=== PATIENT | female | born 1965 | race Caucasian/White ===

== ENCOUNTER 2020-03-30 09:01 | Inpatient (IN) | payer MEDICARE, OTHER ==
[~2020-03-30] VITALS: Ht 162.6 cm; Wt 86.2 kg
[2020-03-30] MEDS ORDERED: ONDANSETRON HCL INJ 2MG/ML 2ML 2 MG/ML VIAL IV ONE (09:23)
[2020-03-30] MEDS ORDERED: SODIUM CHLORIDE 0.9% 1000ML 1,000 ML IV STA (09:23)
[2020-03-30] MEDS ORDERED: KETOROLAC TROMETHAMINE 30 MG/ML VIAL IV ONE (09:23)
[2020-03-30 09:32] LABS: BASOPHILS # (AUTO) 0.1 (0.0-0.1); BASOPHILS % 0.6 % (0.0-1.0); EOSINOPHILS % 6.6 % (0.0-6.0); HEMATOCRIT 33.2 % (34.2-44.1); HEMOGLOBIN 10.1 g/dL (12.0-16.0); LYMPHOCYTES # (AUTO) 1.9 (1.0-3.2); LYMPHOCYTES % 11.9 % (18.0-39.1); MEAN CORPUSCULAR HEMOGLOBIN 24.6 pg (28-32); MEAN CORPUSCULAR HGB CONC 30.4 g/dL (31-35); MONOCYTES % 6.5 % (4.4-11.3); NEUTROPHILS # (AUTO) 11.7 (2.1-6.9); PLATELET COUNT 336 x10e3/uL (140-360); RED CELL DISTRIBUTION WIDTH 16.5 % (11.7-14.4)
[2020-03-30 09:43] LABS: INR 0.96; PROTHROMBIN TIME 13.3 seconds (11.9-14.5)
[2020-03-30 09:44] LABS: PARTIAL THROMBOPLASTIN TIME 31.5 seconds (23.8-35.5)
[2020-03-30 09:53] LABS: ALBUMIN 2.5 g/dL (3.5-5.0); ALBUMIN/GLOBULIN RATIO 0.5 (0.8-2.0); CALCIUM 8.6 mg/dL (8.4-10.2); CREATININE, SERUM 1.96 mg/dL (0.57-1.11)
[2020-03-30 09:59] LABS: CREATINE KINASE MB 1.5 ng/mL (0-5.0)
[2020-03-30] MEDS ORDERED: SODIUM CHLORIDE 0.9% 1000ML 1,000 ML IV ONE ×4 (10:08→22:00)
[2020-03-30] MEDS ORDERED: SODIUM BICARBONATE 8.4% INJ 50 ML SYR IV ONE (10:08)
[2020-03-30] MEDS ORDERED: DEXTROSE 50% SYRINGE 50 ML IV ONE ×2 (10:08→10:23)
[2020-03-30] MEDS ORDERED: CLINDAMYCIN PHOS 900MG/ 50ML 50 ML IV SCH (10:15)
[2020-03-30] MEDS ORDERED: INSULIN REGULAR, HUMAN 100 UNIT/1 ML 3ML VIAL IV ONE (10:15)
[2020-03-30] MEDS ORDERED: INSULIN REGULAR, HUMAN 100 UNIT/1 ML 3ML VIAL ONE ×2 (10:23→20:05)
[2020-03-30] MEDS ORDERED: CEFTRIAXONE SOD 1 GM VIAL ONE (10:24)
[2020-03-30] MEDS ORDERED: SODIUM CHLORIDE 0.9% 1000ML 1,000 ML IV SCH (10:30)
[2020-03-30] MEDS ORDERED: DEXTROSE 50% SYRINGE 50 ML IV PRN ×2 (10:30→10:45)
[2020-03-30] MEDS ORDERED: MORPHINE SULFATE INJ 2 MG/ML SYR IV PRN ×2 (10:30→11:15)
[2020-03-30] MEDS ORDERED: MORPHINE SULFATE INJ 4 MG/ML INJ 1ML IV PRN ×2 (10:30→14:30)
[2020-03-30] MEDS ORDERED: ONDANSETRON HCL INJ 2MG/ML 2ML 2 MG/ML VIAL IV PRN ×2 (10:30→10:45)
[2020-03-30] MEDS: CEFTRIAXONE SOD 1 GM/NS 50 ML 50 ML IV SCH ×2 (10:32→21:10)
[2020-03-30] MEDS ORDERED: TOPIRAMATE50 MG (10:45)
[2020-03-30] MEDS ORDERED: LEVEMIR FL100 UNIT/1 (10:45)
[2020-03-30] MEDS ORDERED: HYDRALAZINE HCL 20 MG/ML VIAL IV PRN (10:45)
[2020-03-30] MEDS ORDERED: ESOMEPRAZOLE MA40 MG (10:45)
[2020-03-30] MEDS ORDERED: ACETAMINOPHEN 325 MG TAB PO PRN (10:45)
[2020-03-30] MEDS ORDERED: CLINDAMYCIN HC300 MG (10:45)
[2020-03-30] MEDS ORDERED: CHLORASEPTIC SPRAY 177 ML BTL MM PRN (10:45)
[2020-03-30] MEDS ORDERED: NOVOLOG100 UNITS1 (10:45)
[2020-03-30] MEDS ORDERED: ULTRAM 50MG50 MG (10:45)
[2020-03-30] MEDS ORDERED: LOSARTAN POTASS25 MG (10:45)
[2020-03-30] MEDS ORDERED: CHLORHEXIDINE473 ML (10:45)
[2020-03-30] MEDS ORDERED: FLUOXETINE HCL20 MG (10:45)
[2020-03-30] MEDS ORDERED: POTASSIUM CHLORIDE 20 MEQ TAB CR PO PRN (10:45)
[2020-03-30] MEDS ORDERED: ATENOLOL50 MG (10:45)
[2020-03-30] MEDS ORDERED: OXYBUTYNIN CHLOR5 M1 (10:45)
[2020-03-30] MEDS ORDERED: IBUPROFEN600 MG (10:45)
[2020-03-30] MEDS ORDERED: POLYETHYLENE GLYCOL 3350 17 GM PACK PO PRN (10:45)
[2020-03-30] MEDS ORDERED: DIPHENHYDRAMINE HCL 25 MG CAP PO PRN (10:45)
[2020-03-30] MEDS ORDERED: MELATONIN 5 MG TABLET PO PRN (10:45)
[2020-03-30] MEDS ORDERED: HYDROXYZINE PAM25 MG (10:45)
[2020-03-30] MEDS ORDERED: DOCUSATE SODIUM 100 MG CAP PO PRN (10:45)
[2020-03-30] MEDS ORDERED: PREGABALIN150 MG (10:45)
[2020-03-30] MEDS ORDERED: ALBUTEROL/IPRATROPIUM 3 ML NEB NEB PRN (10:45)
[2020-03-30] MEDS ORDERED: BUSPIRONE HCL15 MG (10:45)
[2020-03-30] MEDS ORDERED: MAALOX/LIDOCAINE/BENADRYL/NYST 30 ML BTL PO PRN (10:45)
[2020-03-30] MEDS ORDERED: BENZONATATE 100 MG CAP PO PRN (10:45)
[2020-03-30] MEDS ORDERED: BUSPIRONE HCL10 MG (10:45)
[2020-03-30] MEDS ORDERED: ALPRAZOLAM1 MG (10:45)
[2020-03-30 10:48] LABS: CLARITY,URINE CLEAR (CLEAR); COLOR,URINE YELLOW (YELLOW); KETONES,URINE NEGATIVE (NEGATIVE); LEUKOCYTE ESTERASE ,URINE NEGATIVE (NEGATIVE); NITRITE,URINE NEGATIVE (NEGATIVE); PROTEIN,URINE DIPSTICK NEGATIVE (NEGATIVE); URINE UROBILINOGEN 0.2 mg/dL (0.2 - 1)
[2020-03-30 11:29] LABS: BACTERIA,URINE MODERATE /HPF; EPITHELIAL CELLS,URINE FEW /LPF; WBC,URINE (MAN) 0-5 /HPF (0-5)
[2020-03-30] MEDS: INSULIN LISPRO 100 UNIT/1 ML 3ML VIAL SQ SCH ×3 (11:30→20:15)
[2020-03-30 13:41] VITALS: BP 105/62
[2020-03-30] MEDS: FUROSEMIDE INJ 10 MG/ML 4 ML VIAL IV ONE ×2 (14:00→14:36)
[2020-03-30] MEDS: SODIUM CHLORIDE 0.9% 1000ML 1,000 ML IV SCH ×2 (14:00→21:10)
[2020-03-30 14:01] VITALS: BP 105/62
[2020-03-30 14:15] VITALS: BP 105/62
[2020-03-30] MEDS ORDERED: FUROSEMIDE INJ 10 MG/ML 4 ML VIAL IV ONE ×2 (14:30→16:15)
[2020-03-30 15:30] LABS: CALCIUM 8.2 mg/dL (8.4-10.2); CREATININE, SERUM 1.77 mg/dL (0.57-1.11)
[2020-03-30] MEDS ORDERED: SOD POLYSTYRENE SULFONATE SUSP 15 GM/60 ML BTL PO ONE ×3 (16:00→20:00)
[2020-03-30 16:34] VITALS: BP 111/73
[2020-03-30] MEDS: CLINDAMYCIN PHOS 900MG/ 50ML 50 ML IV SCH (18:54)
[2020-03-30 19:37] LABS: CREATINE KINASE MB 1.4 ng/mL (0-5.0)
[2020-03-30] MEDS ORDERED: DEXTROSE 50% SYRINGE 50 ML IV STA (19:50)
[2020-03-30 20:00] VITALS: BP_SYST 111; BP_SYST 95; BP_DIAS 67; BP_DIAS 73
[2020-03-30] MEDS ORDERED: INSULIN REGULAR, HUMAN 100 UNIT/1 ML 3ML VIAL SQ ONE (20:00)
[2020-03-30] MEDS ORDERED: SOD POLYSTYRENE SULFONATE SUSP 15 GM/60 ML BTL ONE (20:05)
[2020-03-31] VITALS (8 sets, daily range): BP systolic 111–170; BP diastolic 48–89
[2020-03-31] MEDS: CLINDAMYCIN PHOS 900MG/ 50ML 50 ML IV SCH ×4 (01:00→20:05)
[2020-03-31 05:32] LABS: BASOPHILS # (AUTO) 0.1 (0.0-0.1); BASOPHILS % 0.7 % (0.0-1.0); EOSINOPHILS # (AUTO) 0.7 (0.0-0.4); EOSINOPHILS % 7.4 % (0.0-6.0); HEMATOCRIT 37.5 % (34.2-44.1); LYMPHOCYTES % 21.5 % (18.0-39.1); MEAN CORPUSCULAR HEMOGLOBIN 24.2 pg (28-32); MEAN CORPUSCULAR HGB CONC 29.3 g/dL (31-35); MEAN CORPUSCULAR VOLUME 82.6 fL (81-99); MONOCYTES # (AUTO) 0.5 (0.2-0.8); MONOCYTES % 5.7 % (4.4-11.3); NEUTROPHILS # (AUTO) 6.1 (2.1-6.9); NEUTROPHILS % 64.4 % (38.7-80.0); PLATELET COUNT 309 x10e3/uL (140-360); RED BLOOD COUNT 4.54 x10e6/uL (3.6-5.1); RED CELL DISTRIBUTION WIDTH 16.8 % (11.7-14.4)
[2020-03-31] MEDS: SODIUM CHLORIDE 0.9% 1000ML 1,000 ML IV SCH ×3 (05:57→20:00)
[2020-03-31 05:58] LABS: CREATINE KINASE MB 1.5 ng/mL (0-5.0)
[2020-03-31 06:11] LABS: MAGNESIUM 1.4 MG/DL (1.3-2.1); PHOSPHORUS 4.6 MG/DL (2.3-4.7)
[2020-03-31 06:27] LABS: ALBUMIN 2.6 g/dL (3.5-5.0); ALBUMIN/GLOBULIN RATIO 0.5 (0.8-2.0); ANION GAP 15.1 mmol/L (8-16); CALCIUM 8.6 mg/dL (8.4-10.2); CREATININE, SERUM 1.62 mg/dL (0.57-1.11); POTASSIUM 5.1 mmol/L (3.5-5.1)
[2020-03-31] MEDS: INSULIN LISPRO 100 UNIT/1 ML 3ML VIAL SQ SCH ×4 (07:30→20:58)
[2020-03-31] MEDS: CEFTRIAXONE SOD 1 GM/NS 50 ML 50 ML IV SCH (08:37)
[2020-03-31] MEDS: PANTOPRAZOLE SOD 40 MG TABEC PO SCH (08:37)
[2020-04-01] VITALS: BP 159/67
[2020-04-01] MEDS: CLINDAMYCIN PHOS 900MG/ 50ML 50 ML IV SCH ×2 (01:36→07:31)
[2020-04-01] MEDS: SODIUM CHLORIDE 0.9% 1000ML 1,000 ML IV SCH (03:05)
[2020-04-01 04:00] VITALS: BP 174/89
[2020-04-01 04:03] VITALS: BP 162/71
[2020-04-01] MEDS: PANTOPRAZOLE SOD 40 MG TABEC PO SCH (07:31)
[2020-04-01 07:45] LABS: BASOPHILS # (AUTO) 0.1 (0.0-0.1); EOSINOPHILS # (AUTO) 0.7 (0.0-0.4); HEMATOCRIT 31.5 % (34.2-44.1); HEMOGLOBIN 9.6 g/dL (12.0-16.0); LYMPHOCYTES # (AUTO) 1.7 (1.0-3.2); LYMPHOCYTES % 21.1 % (18.0-39.1); MEAN CORPUSCULAR HEMOGLOBIN 24.1 pg (28-32); MEAN CORPUSCULAR HGB CONC 30.5 g/dL (31-35); MEAN CORPUSCULAR VOLUME 79.1 fL (81-99); MONOCYTES # (AUTO) 0.5 (0.2-0.8); MONOCYTES % 5.8 % (4.4-11.3); NEUTROPHILS # (AUTO) 5.2 (2.1-6.9); NEUTROPHILS % 63.6 % (38.7-80.0); PLATELET COUNT 341 x10e3/uL (140-360); RED BLOOD COUNT 3.98 x10e6/uL (3.6-5.1); RED CELL DISTRIBUTION WIDTH 16.6 % (11.7-14.4)
[2020-04-01 07:58] VITALS: BP 154/74
[2020-04-01 08:07] LABS: ALBUMIN 2.4 g/dL (3.5-5.0); ALBUMIN/GLOBULIN RATIO 0.5 (0.8-2.0); ANION GAP 15.6 mmol/L (8-16); CALCIUM 8.4 mg/dL (8.4-10.2); CREATININE, SERUM 1.02 mg/dL (0.57-1.11); POTASSIUM 4.6 mmol/L (3.5-5.1)
[2020-04-01] MEDS: INSULIN LISPRO 100 UNIT/1 ML 3ML VIAL SQ SCH ×2 (08:12→11:49)
[2020-04-01 08:33] VITALS: BP 154/74
[2020-04-01 11:54] VITALS: BP 174/66
== END 2020-04-01 12:49 | disposition home or self-care (01) | DRG 641 ==
LOC: ER 09:03 → ERHOLD 10:30 → MED/SURG2 13:05
PROVIDERS: ADMIT Internal Medicine; ATTEND Internal Medicine
DX: E86.0 Dehydration (principal); N17.9 Acute kidney failure, unspecified; E87.5 Hyperkalemia; I10 Essential (primary) hypertension; E11.9 Type 2 diabetes mellitus without complications; F32.9 Major depressive disorder, single episode, unspecified; G89.18 Other acute postprocedural pain; Z88.1 Allergy status to other antibiotic agents; Z88.5 Allergy status to narcotic agent; E66.01 Morbid (severe) obesity due to excess calories; Z83.3 Family history of diabetes mellitus; Z82.49 Family history of ischemic heart disease and other diseases of the circulatory system; D64.9 Anemia, unspecified; Z20.828 Contact with and (suspected) exposure to other viral communicable diseases
CPT/HCPCS: 36415; 51700; 70450; 80048; 80053; 81001; 82550; 82553; 82948; 83735; 84100; 84132; 84484; 85025; 85610; 85730; 87040; 87086; 93005; 99284; J0696; J1817; J1885; J1940; J2405; J7030; J7799; U0002